=== PATIENT | male | born 1955 ===

== ENCOUNTER → 2017-01-23 | Emergency (ER) | payer OTHER ==
[~2017-01-23] MED LIST: DOPamine 400mg/250ml D5W 400 MG/250 ML BAG IV ONE
[2017-01-23 04:10] VITALS: BP 143/127
--- NOTE | 2017-01-23 04:21 | C.PDOC ---
History Of Present Illness As per medics and police, pt at a gas station c/o chest pain, bought a zantac and collapsed, hitting his head. Was witnessed by sand temperer across street. Cpr initiated by officer. Medics on scene - v fib, pt was defibrilated a few times, given 300amiodarone then 150 mg amiodarone for refractory v fib. On arrival to the ed pt in pea. Chief Complaint (Nursing): Cardiac Arrest History Per: EMS Reason For Code Blue: Full Arrest Circumstances: Brought To ED By EMS Arrest Witnessed By: Other (police) CPR Initiated Prior To MD Arrival?: Yes Down-Time Before ACLS: Mins Treatment Initiated Prior To MD Arrival: Yes: CPR, BVM Ventilations, Intubation , Defibrillation, IVF, ACLS Medication Initiation, IV Access Medications Given Prior To MD Arrival: Yes: Epinephrine, Other (amiodarone) - Initial Findings Mentation: Unresponsive Respirations: None (Assisted) Pulse: None Rhythm: PEA Past Medical History Reviewed: Historical Data, Nursing Documentation, Vital Signs Vital Signs: Last Vital Signs Temp Pulse Resp BP 143/127 H 01/23/17 03:54 Pulse Ox Family History: States: Unknown Family Hx - Social History Hx Alcohol Use: (unknown) Hx Substance Use: (unknown) Review Of Systems Review Of Systems: ROS cannot be obtained secondary to pt's inabilty to answer questions. Physical Exam - Physical Exam Appears: In Acute Distress Skin: Pale Head: Swelling, Other (2x3 cm hematoma right forehead) Eye(s): bilateral: Other (fixed and dilated) Ear(s): Bilateral: Normal Neck: Other (collared) Chest: Symmetrical Cardiovascular: Other (asystole) Respiratory: Other (breath sounds only via ett) Gastrointestinal/Abdominal: Soft, No Tenderness Back: Normal Inspection Extremity: No Pedal Edema Neurological/Psych: Other (unresponsive, cpr in progress) Gait: Unable To Assess ED Course And Treatment - Laboratory Results Result Diagrams: 01/23/17 04:23 01/23/17 04:23 ECG: Interpreted By Me, Viewed By Me ECG Rhythm: ST/T Changes (ant wall mi, poss inf wall injury) Progress Note: 3:52 am pt with pulses. ekg done,called dr rothman and sent copy of ekg,However pt bradied down and vent into v fib. Shocked once and then asystole. see cpr code sheet. Patient pronounced at 4:17 AM. 5:20 family at bedside Disposition Counseled Patient/Family Regarding: Studies Performed, Diagnosis - Disposition Disposition: WITH WITHOUT AUTOPSY Disposition Time: 04:20 Condition: - Clinical Impression Clinical Impression: Cardiac arrest Critical Care Time - Critical Care Note Total Time (in mins): 30 Documented critical care: time excludes all time spent performing seperately billable procedures.
[2017-01-23 04:26] LABS: EOS # 0.2 K/uL (0.0-0.7); LYMPH # 5.7 K/uL (1.0-4.3); MEAN PLATELET VOLUME 8.3 fL (7.2-11.7); NRBC % 0.3 % (0.0-2.0)
[2017-01-23 04:44] LABS: CHLORIDE 101 mmol/L (98-107); INR 1.1; POTASSIUM 2.6 mmol/L (3.6-5.2); SODIUM 138 mmol/L (132-148)
[2017-01-23 04:46] LABS: ALB/GLOB RATIO 1.1 (1.0-2.1); ALKALINE PHOSPHATASE 86 U/L (38-126); AST/SGOT 43 U/L (17-59); BILIRUBIN,TOTAL 0.5 mg/dL (0.2-1.3); BLOOD UREA NITROGEN 12 mg/dL (9-20); CARBON DIOXIDE 18 mmol/L (22-30); CHOLESTEROL 212 mg/dL (0-199); GFR AFRICAN-AMERICAN > 60; GLUCOSE,RANDOM 314 mg/dL (75-110); TOTAL PROTEIN 6.6 g/dL (6.3-8.3)
[2017-01-23 04:47] LABS: ALT/SGPT 52 U/L (21-72)
[2017-01-23 04:59] LABS: BASO % 0.3 % (0.0-2.0); EOS % 2.7 % (0.0-4.0); HEMATOCRIT 41.8 % (35.0-51.0); LYMPH % 73.7 % (20.0-40.0); MEAN CELL VOLUME 82.4 fL (80.0-94.0); MEAN CORPUSCULAR HEMOGLOBIN 25.5 pg (27.0-31.0); MONO # 0.3 K/uL (0.0-0.8); MONO % 4.2 % (0.0-10.0); PLATELET COUNT 175 K/uL (130-400); RED CELL DISTRIBUTION WIDTH 16.6 % (11.5-14.5); WHITE BLOOD COUNT 7.7 K/uL (4.8-10.8)
[2017-01-23 07:05] LABS: METAMYELOCYTE 1 % (0-0); MYELOCYTE 3 % (0-0); NEUTROPHIL 9 % (50-75); REACTIVE LYMPHOCYTES 62 % (0-0); TOTAL CELLS COUNTED 100
--- NOTE | 2017-01-27 12:10 | CARD ---
APPROVED REPORT EKG Measurement Heart [id number] <Conclusion> Poor data quality, interpretation may be adversely affected Wide QRS rhythm, possible 3rd degree heart block with ventricular escape Left axis deviation Anterior lateral and high lateral STEMI pattern ACUTE NH / STEMI Abnormal ECG
== END ==
LOC: C.ER 03:35
DX: I46.9 Cardiac arrest, cause unspecified (principal)
CPT/HCPCS: 31500; 80053; 80061; 82948; 83880; 84484; 85025; 85610; 85730; 99285; J0171